=== PATIENT | female | born 1955 | race Caucasian/White ===

== ENCOUNTER → 2016-08-18 | Outpatient (CLI) | payer OTHER | LOC: BMCIMAGING 15:49 | PROVIDERS: ATTEND Internal Medicine | DX: R05 Cough (principal); Z85.3 Personal history of malignant neoplasm of breast ==

== ENCOUNTER → 2016-09-19 | Outpatient (CLI) | payer OTHER | LOC: CIMAGING 09:28 | PROVIDERS: ATTEND Internal Medicine | DX: R05 Cough (principal); R06.02 Shortness of breath; Z85.3 Personal history of malignant neoplasm of breast ==

== ENCOUNTER → 2017-05-12 | Outpatient (CLI) | payer OTHER | LOC: BMCIMAGING 09:49 | PROVIDERS: ATTEND Otolaryngology | DX: R05 Cough (principal); Z85.3 Personal history of malignant neoplasm of breast; Z90.13 Acquired absence of bilateral breasts and nipples ==

== ENCOUNTER → 2017-09-30 | Outpatient (CLI) | payer OTHER | LOC: BMCIMAGING 16:30 | PROVIDERS: ATTEND Family Medicine | DX: M79.661 Pain in right lower leg (principal) ==

== ENCOUNTER → 2017-10-13 | Outpatient (CLI) | payer OTHER | LOC: FIMAGING 15:00 | PROVIDERS: ATTEND Allergy & Immunology Allergy | DX: R05 Cough (principal); Z85.3 Personal history of malignant neoplasm of breast ==

== ENCOUNTER 2018-02-24 18:00 | Emergency (ER) | payer OTHER ==
[2018-02-24 18:10] VITALS: BP 194/128
[2018-02-24] MEDS ORDERED: AMOXICILLIN/CLAVULANATE POT 875/125 MG TAB PO ONE (18:56)
[2018-02-24] MEDS ORDERED: TDAP ADULT 0.5 ML INJ (BOOSTRIX) IM ONE (18:56)
--- NOTE | 2018-02-24 18:58 | EDPHY ---
H & P Smoking Status: Former smoker Time Seen by Provider: 02/24/18 18:51 HPI/ROS: CHIEF COMPLAINT: Cat bite right forearm yesterday HISTORY OF PRESENT ILLNESS: 62-year-old female was bitten by her own cat yesterday after the CT was irritated, bit her on the dorsum of the right distal forearm. She notes slight amount of proximal erythema today. Denies fever chills. Denies flu-like symptoms. Denies nausea or vomiting. Her tetanus is out-of-date. PHYSICAL EXAM (Prior to examination, patient consented to physical exam, hands were washed and my usual and customary physical exam procedures followed) 1) GENERAL: Well-developed, well-nourished, alert and oriented. Appears to be in no acute distress. 2) HEAD: Normocephalic 3) HEENT: sclera anicteric 4) LUNGS: Breathing comfortably. 5) SKIN: Right dorsal distal forearm puncture wound in abrasion. There is halo erythema extending 3 cm proximally. The extent of this has been outlined by myself. 6) MUSCULOSKELETAL: Soft compartments. Neurovascular intact distally ([place]) Constitutional: Initial Vital Signs Temperature (C) 36.7 C 02/24/18 18:04 Heart Rate 82 02/24/18 18:04 Respiratory Rate 16 02/24/18 18:04 Blood Pressure 194/128 H 02/24/18 18:04 O2 Sat (%) 97 02/24/18 18:04 O2 Delivery Mode Room Air Allergies/Adverse Reactions: cinnamon Allergy (Intermediate, Verified 04/02/16 17:58) Hives codeine Allergy (Mild, Verified 04/02/16 17:58) GI upset Home Medications: Medication Instructions Recorded Amphet Asp and D/Amphet [Adderall 10 mg PO 04/02/16 10 MG (*)] Anastrozole [Arimidex 1 mg (*)] 1 mg PO 04/02/16 Hydrochlorothiazide [HCTZ (*)] 25 mg PO DAILY 04/02/16 Sertraline HCl [Zoloft 25mg (*)] 25 mg PO DAILY 04/02/16 Tapentadol HCl [Nucynta 50 MG (*)] 50 mg PO Q4-6PRN 04/02/16 Zolpidem Tartrate [Ambien 5MG (*)] 5 mg PO HS 04/02/16 Fiorella Allergy 02/24/18 Amoxicillin/Clavulanate Pot 875 mg PO BID #14 tab 02/24/18 [Augmentin 875 mg tab] Flonase Allergy Relief 02/24/18 Losartan Potassium 02/24/18 Singulair 02/24/18 MDM/Departure - MDM Medications Given: Discontinued Medications Amoxicillin/Clavulanate Potassium (Augmentin 875mg) 875 mg PO EDNOW ONE PRN Reason: Protocol Stop: 02/24/18 18:57 Last Admin: 02/24/18 19:15 Dose: 875 mg Diphtheria/Tetanus/Acell Pertussis (Boostrix) 0.5 ml IM .ONCE ONE Stop: 02/24/18 18:57 Last Admin: 02/24/18 19:16 Dose: 0.5 ml ED Course/Re-evaluation: 6:57 p.m.: This patient shows evidence of early infection secondary to cat bite. Initiating antibiotic therapy with Augmentin. Her tetanus has been updated. I think the patient can be treated with oral antibiotics at this time. My usual and customary wound precautions instructions provided. She feels comfortable being discharged. Care of patient under supervision of secondary supervising physician Dr Freddy Moran. ([facility],[place]) I did not see this patient while she was in the emergency department. However her care was discussed with PA while the patient was in the department. I agree with treatment plan and management (Freddy Moran) - Depart Disposition: Home, Routine, Self-Care Clinical Impression: Cat bite of right forearm with infection Qualifiers: Encounter type: initial encounter Qualified Code(s): S51.851A - Open bite of right forearm, initial encounter Condition: Good Instructions: Amoxicillin/Clavulanate Potassium (By mouth), Animal Bite (ED) Additional Instructions: Return to the ER if you develop redness, swelling, discharge, warmth to the wound, red streaks going up your arm, or any other symptoms that concern you. Prescriptions: Amoxicillin/Clavulanate Pot [Augmentin 875 mg tab] 875 mg PO BID #14 tab Referrals: Danielle Camarillo MD [Primary Care Provider] - 1-2 days without fail
== END 2018-02-24 19:20 | disposition home or self-care (01) ==
DX: S51.851A Open bite of right forearm, initial encounter (principal); W55.01XA Bitten by cat, initial encounter; L08.9 Local infection of the skin and subcutaneous tissue, unspecified